=== PATIENT | male | born 1985 | race Caucasian/White ===

== ENCOUNTER 2024-05-18 10:45 | Emergency (ER) | payer BC ==
[2024-05-18] MEDS: Aspirin 81 MG Tab.Chew PO ONE (10:50)
[2024-05-18 11:31] LABS: HEMATOCRIT 44.4 % (40.0-54.0); HEMOGLOBIN 15.4 g/dL (13.0-18.0); MEAN CORPUSCULAR HEMOGLOBIN 29.7 pg (27.0-32.0); MEAN CORPUSCULAR HGB CONC 34.7 g/dL (31.0-35.0); MEAN PLATELET VOLUME 9.2 fL (6.0-10.0); RED BLOOD CELL COUNT 5.19 M/uL (4.50-6.50); RED CELL DISTRIBUTION WIDTH 12.8 % (11.0-16.0)
[2024-05-18 11:54] LABS: A/G RATIO 1.3 (0.8-2.0); ALANINE AMINOTRANSFERASE,ALT 50 U/L (12-78); ALBUMIN 4.4 g/dL (3.4-5.0); ALKALINE PHOSPHATASE 93 U/L (46-116); ANION GAP 12.5 mmol/L (5.0-15.0); ASPARTATE AMNIOTRANSFERASE,AST 21 U/L (15-37); BILIRUBIN TOTAL 0.4 mg/dL (0.0-1.0); BLOOD UREA NITROGEN,BUN 14 mg/dL (8-26); BUN/CREATININE RATIO 11.9 (6-25); CALCIUM 9.4 mg/dL (8.5-10.1); CARBON DIOXIDE,CO2 30.5 mmol/L (21.0-32.0); CHLORIDE,CL 104 mmol/L (98-107); CREATININE 1.18 mg/dL (0.70-1.30); EST CRCL DRUG DOSING (CG) 94.04 mL/min; ESTIMATED GFR 80 mL/min (>60); GLUCOSE RANDOM 105 mg/dL (74-100); MAGNESIUM 1.9 mg/dL (1.8-2.4); PROTEIN TOTAL,TP 7.9 g/dL (6.4-8.2); SODIUM,NA 143 mmol/L (136-145)
[2024-05-18 12:10] LABS: TROPONIN I HIGH SENSITIVITY < 4.0 pg/ml (<=60.4)
== END 2024-05-18 12:16 | disposition home or self-care (01) ==
LOC: LB.ED 10:45
DX: R07.89 Other chest pain (principal); I10 Essential (primary) hypertension; F17.210 Nicotine dependence, cigarettes, uncomplicated
CPT/HCPCS: 36415; 80053; 80061; 83735; 84484; 85027; 93005; 93010; 99283; 99285; A9270-GY